=== PATIENT | female | born 1970 ===

== ENCOUNTER 2018-03-14 14:43 | Emergency (ER) | payer BC ==
[2018-03-14] MEDS ORDERED: Diph,Pert(Acell),Tet Vac 0.5 ML SYR IM ONE (15:33)
--- NOTE | 2018-03-14 15:42 | Emergency Department Record ---
History of Present Illness - General Chief Complaint: Laceration(s) Stated Complaint: LACERATION Time Seen by Provider: 03/14/18 15:22 Source: Patient Mode of Arrival: Ambulatory Limitations: No limitations - History of Present Illness Initial Commments: The patient is here due to cutting her R hand about an hour ago on a sharp piece of metal. She tripped at home and fell against the a sharp metal wall and cut the hand. She denies any numbness or tingling and her Td is not UTD. Onset/Timin -: Hour(s) Place: Work Associated Symptoms: None - Related Data Hx Tetanus Toxoid Vaccination: No Patient Tetanus UTD (within 5 yrs): No Previous Rx's Medication Instructions Recorded Cephalexin [Keflex] 500 mg PO QID #20 cap 03/14/18 Allergies Allergy/AdvReac Type Severity Reaction Status Date / Time No Known Drug Allergies Allergy Verified 03/14/18 15:04 Travel Screening - Travel/Exposure Within Last 30 Days Have you traveled within the last 30 days?: No Review of Systems Constitutional: Denies: Chills, Fever Past Medical History - SOCIAL HISTORY Smoking Status: Never smoker Alcohol Use: None Drug Use: None - RESPIRATORY Hx Respiratory Disorders: No - CARDIOVASCULAR Hx Cardio Disorders: No - NEURO Hx Neuro Disorders: No - GI Hx GI Disorders: No - Hx Genitourinary Disorders: No - ENDOCRINE Hx Endocrine Disorders: No - MUSCULOSKELETAL Hx Musculoskeletal Disorders: No - PSYCH Hx Psych Problems: No - HEMATOLOGY/ONCOLOGY Hx Hematology/Oncology Disorders: No Family Medical History Any Significant Family History?: No Physical Exam - General General Appearance: Alert, Cooperative, No acute distress - Head Head exam: Atraumatic, Normocephalic - Eye Eye exam: Normal appearance - Extremities Extremities exam: Full ROM, Tenderness, Other (The R hand and fingers have normal sensory and tendon function distal to the Lac.). negative: Normal inspection, Joint swelling Image of Hand: 1 - 2.5 cm linear lac. Course Vital Signs 03/14/18 15:05 Temperature 97.9 F Pulse Rate 101 H Respiratory 16 Rate Blood Pressure 112/74 Pulse Ox 100 - Reevaluation(s) Reevaluation #1: Procedure note: The R hand lac was anesth. with 3 cc's Lido 1% with Epi. The wound was explored and was not down to the tendons. There were no tendons or nerves visualized. The lac was closed with 6 4.0 nylon sutures. There were no complications. 03/14/18 16:40 Medical Decision Making - Data Complexity MDM Data: X-Ray Ordered and/or Reviewed - Radiology Data Radiology results: Report reviewed (R hand: Neg.) Disposition Disposition: Discharge Clinical Impression: Laceration of hand Qualifiers: Encounter type: initial encounter Foreign body presence: without foreign body Laterality: right Qualified Code(s): S61.411A - Laceration without foreign body of right hand, initial encounter Disposition: Home, Self-Care Condition: (2) Stable Instructions: Laceration (ED) Additional Instructions: Keep dry for 2 days then wash daily with soap and water and watch for infection. Take the Keflex as directed. Please return in 10 days for suture removal. Prescriptions: Cephalexin [Keflex] 500 mg PO QID #20 cap Forms: Patient Portal Access Time of Disposition: 16:39 Quality - Quality Measures Quality Measures: N/A - Blood Pressure Screening View Details: Yes Does Patient Have Any of the Following: No Blood Pressure Classification: Normal BP Reading Systolic Measurement: 112 Diastolic Measurement: 74 Screening for High Blood Pressure: < Normal BP, F/U Not Required > [[id number]]
--- NOTE | 2018-03-15 13:08 | RADIOLOGY REPORT ---
EXAM: RIGHT HAND HISTORY: INJURY. TECHNIQUE: Three views of the right hand were performed. FINDINGS: No evidence of fracture or dislocation. No lytic or blastic lesion. IMPRESSION: NEGATIVE RIGHT HAND EXAMINATION. JOB NUMBER: [id number] [facility]
== END 2018-03-14 17:06 | disposition home or self-care (01) ==
LOC: ER 14:43
DX: S61.411A Laceration without foreign body of right hand, initial encounter (principal); W01.198A Fall on same level from slipping, tripping and stumbling with subsequent striking against other object, initial encounter; Y99.0 Civilian activity done for income or pay
CPT/HCPCS: 12001; 90715; 96372; 99283